=== PATIENT | male | born 1970 | race Caucasian/White ===

== ENCOUNTER 2020-05-10 15:04 | Emergency (ER) | payer BC, SELFPAY ==
[2020-05-10 15:28] VITALS: BP 124/83; PULSE 100; RESP 18; O2SAT 94; BMI 34.8
[2020-05-10 15:30] VITALS: RESP 18
--- NOTE | 2020-05-10 15:34 | XRR_ITS ---
PROCEDURE INFORMATION: Exam: XR Chest Exam date and time: 05/10/2020 4:00 PM Age: 49 years old Clinical indication: Cough and dyspnea; Additional info: Dyspnea/cough TECHNIQUE: Imaging protocol: XR of the chest Views: 1 view. COMPARISON: CR Chest 1 [place] [id number] 04/13/2018 2:26 PM FINDINGS: Lungs: Nonspecific ground-glass infiltrates noted in the right mid/upper lung and left lung base. Left upper lung is clear. Pleural spaces: Unremarkable. No pleural effusion. No pneumothorax. Heart/Mediastinum: No cardiomegaly. Bones/joints: Unremarkable. XR/XR chest 1V portable [id number] IMPRESSION: Nonspecific ground-glass infiltrates noted in the right mid/upper lung and left lung base. Consider nonspecific viral pneumonia. This is new when compared to 04/13/2018.
[2020-05-10 15:38] VITALS: RESP 18
--- NOTE | 2020-05-10 16:21 | W.ED.CHESTPA ---
HPI - Chest Pain General: Chief Complaint: Chest Pain Stated Complaint: Chest Pain, dizziness. Covid +, in COVID WR Time Seen by Provider: 05/10/20 15:19 History of Present Illness: HPI narrative: 49-year-old male presents emergency room with complaints of fever and shortness of breath. Tested positive for Covid 5 days ago. He had symptoms for 5 days prior to that as well so he is past the 10-day celia since the onset of symptoms at this point. Patient is morbidly obese and he does have history of diabetes mellitus. His mildly productive cough. He is not been particularly short of breath but he does have significant chest pain with his cough. In addition to being obese he is diabetic. Onset (ago): day(s) Timing of current episode: episodic Onset: during rest and during exertion Pain location: other (Diffusely across the chest) Pain radiation: none Severity: moderate Quality: sharp Relieving factors: nothing Exacerbating factors: inspiration and other (cough) Associated symptoms: Reports dyspnea, fever(s) and nausea; Deny abdominal pain, diaphoresis, leg edema, palpitations, sense of impending doom, syncope or vomiting Treatment prior to arrival: none Review of Systems Const: Reports: fever(s); Denies: diaphoresis Eyes: Denies: change in vision or blurry vision ENMT: Denies: throat pain, oral sores, dental pain, nasal discharge or nasal congestion Card: Denies: palpitations or syncope Resp: Reports: dyspnea GI: Reports: nausea; Denies: abdominal pain or vomiting : Denies: flank pain, difficulty urinating, dysuria, urinary frequency, urinary urgency, urinary incontinence or hematuria Musc: Denies: neck pain, back pain, extremity pain, extremity swelling, joint pain or joint swelling Skin/Breast: Denies: rash, pruritus or erythema Neuro: Denies: headache(s), numbness in extremities, weakness in extremities, sensory changes, lack of coordination, difficulty walking, frequent falls, dizziness, vertigo or confusion Psych: Denies: anxiety, depression, loss of interest, visual hallucinations, auditory hallucinations, suicidal ideation or homicidal ideation Endo: Denies: polyuria, polydipsia, tired all the time or cold intolerance Aung/Lymph: Denies: easy bruising, easy bleeding, petechiae, enlarged lymph nodes or tender lymph nodes Physical Exam Const: COMMON NORMALS: no acute distress GENERAL APPEARANCE: cooperative and comfortable ORIENTATION/CONSCIOUSNESS: Yes awake, Yes oriented to person, Yes oriented to place and Yes oriented to time HENMT: COMMON NORMALS: normocephalic, atraumatic and hearing grossly normal bilaterally HEAD & SCALP: normocephalic and atraumatic Eye: COMMON NORMALS: Equal, round and reactive pupils present, EOMs intact bilaterally, conjunctivae normal and no scleral icterus CONJUNCTIVA: Yes conjunctivae normal PUPIL: Yes Equal, round and reactive pupils present Neck/C-Spine: COMMON NORMALS: full ROM, no lymphadenopathy, supple and no JVD Lymph: LYMPHATIC: no lymphadenopathy noted and no lymphedema noted Resp: COMMON NORMALS: normal respiratory effort, No retractions, No use of accessory muscles and clear to auscultation bilaterally AUSCULTATION: clear to auscultation bilaterally Cardio: COMMON NORMALS: no JVD, regular rate, regular rhythm and No murmurs present (Cardio) RATE: regular rate RHYTHM: regular rhythm GI: COMMON NORMALS: Soft to palpation and No hepatosplenomegaly present AUSCULTATION: Yes normoactive bowel sounds PALPATION: Yes Soft to palpation, No Tenderness to palpation present (GI), No Guarding due to palpation present (GI) and Yes No hepatosplenomegaly present Extremity: COMMON NORMALS: normal to inspection, capillary refill normal, no clubbing, cyanosis or edema, no calf tenderness and no pedal edema Neuro: SENSORIUM/ORIENTATION: Yes oriented to person, Yes oriented to place and Yes oriented to time Skin: COMMON NORMALS: no rashes or lesions noted GENERAL SKIN EXAM: no rashes or lesions noted Course Vital Signs: Vital signs: Vital Signs Pulse Rate 100 05/10/20 15:28 Respiratory Rate 18 05/10/20 16:34 Blood Pressure 124/83 05/10/20 15:28 Pulse Oximetry 95 05/10/20 16:34 MDM - Chest Pain MDM Narrative: Medical decision making narrative: Typical symptoms for COVID-19 vitals are within normal ranges patient's chest pain is only associated with cough and deep inspiration. His oxygen sats are in the normal range we will discharge him home with hip finger sat monitor. He is well beyond the range of monoclonal antibody infusion. Discharge Plan Discharge Patient Disposition: Home Clinical Impression: COVID-19 Condition: Stable Prescriptions: No Action citalopram 40 mg tablet 40 mg PO DAILY RF: 0 prednisone 20 mg tablet 40 mg PO DAILY RF: 0 glimepiride 2 mg tablet 2 mg PO DAILY RF: 0 alprazolam 0.5 mg tablet 0.5 mg PO DAILY PRN (Reason: Anxiety) RF: 0 hydrocodone-acetaminophen 7.5-325 mg tablet 1 tab PO TID PRN (Reason: Pain) RF: 0 lisinopril-hydrochlorothiazide 20-25 mg tablet 1 tab PO DAILY RF: 0 zolpidem 10 mg tablet 10 mg PO BEDTIME PRN (Reason: Insomnia) RF: 0 Discharge Orders: Discharge ED (Routine); Ordered 05/10/20 Ordered By: Santos Adair Referrals: Nicolas Koroma MD [Primary Care Provider] - Discharge Diet: Usual diet Discharge Activity: Limit activity as instructed Patient Instructions: Opioid Safety Coding Level of Care Code ED [employer] Laborer for Gino Simmons
[2020-05-10 16:34] VITALS: RESP 18; O2SAT 95
--- NOTE | 2020-05-10 16:34 | PC.NURSE ---
Given patient home oxygen monitor for home use.
--- NOTE | 2020-05-10 18:15 | ECG_ITS ---
[facility] Test Date: 2020-05-10 Pat Name: Eben Perry Department: Room: Gender: Male Senior Laboratory Technician: : 1970 Requested By: Santos Bella Order Number: [id number] Will MD: Maureen Thurman M.D. Measurements Intervals [place] Rate: 99 P: 29 AK: 123 QRS: 18 QRSD: 96 T: 58 QT: 340 QTc: 436 Interpretive Statements SINUS RHYTHM NONSPECIFIC ST & T-WAVE ABNORMALITY Compared to ECG 04/13/2018 21:11:02 T-wave abnormality now present Sinus bradycardia no longer present Electronically Signed On 05-10-2020 19:44:50 IMPROVEMENT SPEC by Maureen Thurman M.D. [id number] f
== END 2020-05-10 16:35 | disposition home or self-care (01) ==
PROVIDERS: Emergency Provider Family Medicine; PCP Family Medicine
DX: U07.1 COVID-19 (principal)
CPT/HCPCS: 71045; 93005; 99283

== ENCOUNTER 2020-05-14 17:02 | Emergency (ER) | payer SELFPAY ==
[2020-05-14 17:25] VITALS: BP 105/70; PULSE 98; RESP 15; TEMP 36.8; O2SAT 92; BMI 35.9
--- NOTE | 2020-05-14 17:34 | PC.NURSE ---
this nurse applied 2L per NC of supplemental O2 for comfort
[2020-05-14 17:54] VITALS: BP 102/65; PULSE 89; RESP 18; O2SAT 94
[2020-05-14 17:59] VITALS: O2SAT 95
--- NOTE | 2020-05-14 17:59 | XR_ITS ---
WS: [id number] XR chest 1V portable [id number] REASON FOR EXAM: SOB FINDINGS: Compared to the previous examination of 05/10/2020 the multiple areas of interstitial and groundglass infiltrative changes have increased in volume. Remainder the examination is unchanged. XR/XR chest 1V portable [id number] IMPRESSION: Increasing pulmonary infiltrates as above.
[2020-05-14 18:16] LABS: Basophils % 0.4 %; Eosinophils # 0.3 10^3/uL (0.0-0.8); Eosinophils % 3.4 %; Hematocrit 41.1 % (42.0-52.0); Hemoglobin 13.8 g/dL (11.7-16.6); Lymphocytes # 1.2 10^3/uL (0.8-4.8); Lymphocytes % 15.4 %; Mean Corpuscular HGB Conc 33.6 g/dL (30.0-36.0); Mean Corpuscular Volume 89.3 fL (80-94); Mean Platelet Volume 9.9 fL (7.4-10.4); Monocytes % 12.8 %; Neutrophils # 4.99 10^3/uL (1.8-7.7); Neutrophils % 65.9 %; Nucleated Red Blood Cells % 0 %; Platelet Count 349 10^3/cmm (130-400); Red Cell Distribution Width 11.9 % (12.1-15.1); White Blood Count 7.6 10^3/uL (4.0-10.0)
[2020-05-14 18:50] LABS: D Dimer 0.74 ug/mIFEU (0-0.59)
[2020-05-14 18:55] LABS: Lactic Sepsis W/Reflex 1.6 mmol/L (0.5-2.2)
[2020-05-14 19:13] LABS: Alanine Aminotransferase 26 U/L (0-41); Albumin Level 3.5 g/dL (3.5-5.2); Alkaline Phosphatase 75 IU/L (40-130); Anion Gap 17.2 (5-19); Aspartate Amino Transferase 20 U/L (0-40); Blood Urea Nitrogen 20 mg/dL (6-20); C Reactive Protein 90.5 mg/L (0.0-4.9); Calcium 9.6 mg/dL (8.5-10.5); Carbon Dioxide 24 mmol/L (22-29); Chloride 99 mmol/L (98-107); Globulin 4.4 g/dL (1.3-4.6); Glucose 122 mg/dL (65-115); Osmolality Calculated 288 mOsm/kg (285-295); Potassium 3.2 mmol/L (3.5-5.1); Sodium 137 mmol/L (136-145); Total Bilirubin 0.4 mg/dL (0.15-1.2); Total Protein 7.9 g/dL (6.6-8.7)
[2020-05-14 19:16] VITALS: BP 99/56; PULSE 74; RESP 16; O2SAT 94
--- NOTE | 2020-05-14 20:04 | CTR_ITS ---
PROCEDURE INFORMATION: Exam: CT Angiography Chest With Contrast Exam date and time: 05/14/2020 8:13 PM Age: 49 years old Clinical indication: Shortness of breath; Additional info: SOB TECHNIQUE: Imaging protocol: Computed tomographic angiography of the chest with contrast. 3D rendering (Not supervised by radiologist): MIP and/or 3D reconstructed images were created by the technologist. Total images: 949 Radiation optimization: All CT scans at this facility use at least one of these dose optimization techniques: automated exposure control; mA and/or kV adjustment per patient size (includes targeted exams where dose is matched to clinical indication); or iterative reconstruction. Contrast material: OMNI 350; Contrast volume: 95 ml; Contrast route: INTRAVENOUS (IV); COMPARISON: CR XR chest 1V portable [id number] 05/14/2020 6:10 PM RADIATION DOSE METRICS: Total DLP (mGy-cm): 626.75 FINDINGS: Pulmonary arteries: No visible evidence of pulmonary embolism/pulmonary arterial thrombus. Aorta: The thoracic aorta is nonaneurysmal. No visible intimal flap or dissection. Lungs: Bilateral, predominantly peripheral, patchy ground-glass interstitial lung disease opacification consistent with active interstitial pneumonitis. Evidence of early consolidation. Overall constellation of findings would be consistent with Covid-19 pneumonitis/pneumonia. Pleural spaces: Unremarkable. No pneumothorax. No pleural effusion. Heart: No cardiomegaly. No visible pericardial effusion. No visible coronary artery disease. Lymph nodes: Few marginally prominent middle mediastinal and hilar lymph nodes most likely reactive. Liver: Diffuse fatty infiltration of the liver with hepatomegaly. Spleen: Splenomegaly. Bones/joints: No visible evidence of active or acute osseous pathology. Mild degenerative disease of the spine. Soft tissues: Unremarkable. Other findings: Heavy body habitus. CT/CT angio chest PE protcl [id number] IMPRESSION: 1. No visible evidence of pulmonary embolism/pulmonary arterial thrombus. 2. Bilateral, predominantly peripheral, patchy ground-glass interstitial lung disease opacification consistent with active interstitial pneumonitis. Evidence of early consolidation. Overall constellation of findings would be consistent with Covid-19 pneumonitis/pneumonia. 3. Hepatosplenomegaly. 4. Diffuse fatty infiltration of the liver. Radiation Dose CTDIVOL = (mGy): DLP = 626.75 (mGy-cm)
[2020-05-14] MEDS: iohexol 350 mg/mL 100 mL Btl IV (20:28)
--- NOTE | 2020-05-14 21:01 | ED_ITS ---
HPI - COVID General: Chief Complaint: COVID symptoms Stated Complaint: COVID +. ..STATES LOW ON OXYGEN Time Seen by Provider: 05/14/20 17:30 Source: patient Mode of arrival: ambulatory Limitations: no limitations Triage information: Has fever, cough or shortness of breath . No known COVID + exposure last 14 days History of Present Illness: HPI Narrative: Patient is a 49-year-old male who was diagnosed with COVID-19 about 10 days ago. Symptoms started about 45 days prior to that. He continues to be short of breath and when he checks his pulse oximeter his saturations drop and has dropped as low as 76. He is having increasing shortness of breath and so he is here to be evaluated. During triage nurse put him on oxygen at 2 L and he felt a whole lot better. MD complaint: known COVID positive Prior covid testing: yes, results known COVID 19 common symptoms: positive fever(s), cough, dyspnea and fatigue; negative chills, body aches, headache(s), loss of sense of smell and/or taste, throat pain, nasal congestion, nausea or vomiting COVID 19 other sytmptoms: positive requiring oxygen; negative chest pressure, chest pain, pleuritic pain, requiring more oxygen, respiratory distress, cyanosis, confusion, new neurological complaints or other concerning symptoms Onset (ago): week(s) (1) Severity: slowly worsening Pertinent comorbid conditions: diabetes and hypertension Treatment prior to arrival: none COVID Results: No Data to Display Review of Systems General: Reports: 10 or more systems reviewed and unremarkable except in HPI and below Const: Reports: fever(s) and fatigue; Denies: chills or body aches Eyes: Denies: change in vision or blurry vision ENMT: Denies: throat pain or nasal congestion Card: Denies: chest pain Resp: Reports: dyspnea GI: Denies: nausea or vomiting : Denies: flank pain, dysuria, urinary frequency, urinary urgency or urinary hesitancy Musc: Denies: neck pain, back pain or extremity swelling Skin/Breast: Denies: rash, pruritus or erythema Neuro: Denies: headache(s) or confusion Endo: Denies: polyuria, polydipsia or tired all the time Physical Exam Const: COMMON NORMALS: no acute distress, average body habitus, patient oriented x3, no limitations, healthy appearing, alert and well nourished HENMT: COMMON NORMALS: normocephalic, atraumatic and moist oral mucous membranes HEAD & SCALP: normocephalic and atraumatic Eye: COMMON NORMALS: Equal, round and reactive pupils present, EOMs intact bilaterally, conjunctivae normal and no scleral icterus CONJUNCTIVA: Yes conjunctivae normal PUPIL: Yes Equal, round and reactive pupils present Neck/C-Spine: COMMON NORMALS: no meningeal signs and no JVD Resp: COMMON NORMALS: normal respiratory effort, No retractions, No use of accessory muscles, clear to auscultation bilaterally and percussion normal AUSCULTATION: clear to auscultation bilaterally PERCUSSION: percussion normal Cardio: COMMON NORMALS: no JVD, regular rate, regular rhythm, S1 normal heart sound present, S2 normal heart sound present, No gallops present (Cardio), No clicks present (Cardio), No murmurs present (Cardio), No rub (Cardio) and Peripheral pulses 2+ throughout RATE: regular rate RHYTHM: regular rhythm HEART SOUNDS: S1 normal heart sound present and S2 normal heart sound present PERIPHERAL PULSES: Peripheral pulses 2+ throughout GI: COMMON NORMALS: Normal to inspection, nondistended, normoactive bowel sounds present, Soft to palpation, non-tender, No hepatosplenomegaly present, no masses and no bruits PALPATION: Yes Soft to palpation and Yes No hepatosplenomegaly present Extremity: COMMON NORMALS: normal to inspection, full ROM, capillary refill normal, no calf tenderness and no pedal edema Neuro: COMMON NORMALS: patient oriented x3 SENSORIUM/ORIENTATION: Yes alert MENINGEAL SIGNS: Yes no meningeal signs Skin: COMMON NORMALS: no rashes or lesions noted, no wounds, turgor normal, no jaundice, no petechiae and no mottling GENERAL SKIN EXAM: no rashes or lesions noted and turgor normal Course Reevaluation(s): Reevaluation #1: Discussed his lab and imaging findings with him. Chest x-ray and CT scan are consistent with Covid pneumonia. No PE. We will discharge him home on home oxygen. He is to f/u with his PCP. He voiced understanding and all questions answered. Time: 21:32 Vital Signs: Vital signs: Vital Signs Temperature 98.3 F 05/14/20 17:25 Pulse Rate 68 03/17/21 21:44 Respiratory Rate 18 05/14/20 21:44 Blood Pressure 98/58 05/14/20 21:44 Pulse Oximetry 93 05/14/20 21:44 MDM - COVID MDM Narrative: Medical decision making narrative: 49-year-old male with Covid pneumonia who has been having hypoxia at home. Because he was having worsening shortness of breath a CTA was done which was negative for PE. Chest x-ray and CTA of his lungs are consistent with Covid pneumonia. Other labs were unr emarkable. He is discharged home on home oxygen. Medical Records: Attestation: I reviewed the patient's medical records. Lab Data: Attestation: I reviewed the patient's lab results. Labs: Lab Results 05/14/20 05/14/20 05/14/20 Range/Units 17:50 17:50 17:50 WBC 7.6 (4.0-10.0) 10^3/ uL RBC 4.60 (4.1-5.3) 10^6/u L Hgb 13.8 (11.7-16.6) g/dL Hct 41.1 L (42.0-52.0) % MCV 89.3 (80-94) fL MCH 30.0 (28.0-34.0) pg MCHC 33.6 (30.0-36.0) g/dL RDW 11.9 L (12.1-15.1) % Plt Count 349 (130-400) 10^3/c mm MPV 9.9 (7.4-10.4) fL Neut % (Auto) 65.9 % Lymph % (Auto) 15.4 % Davis % (Auto) 12.8 % Eos % (Auto) 3.4 % Baso % (Auto) 0.4 % Neut # (Auto) 4.99 (1.8-7.7) 10^3/u L Lymph # (Auto) 1.2 (0.8-4.8) 10^3/u L Davis # (Auto) 1.0 H (0.2-0.9) 10^3/u L Eos # (Auto) 0.3 (0.0-0.8) 10^3/u L Baso # (Auto) 0.0 (0.0-0.1) 10^3/u L Nucleated RBC % (a uto) 0 % Nucleated RBCs # 0.0 /100WBC D-Dimer 0.74 H (0-0.59) ug/mIFE U Sodium 137 (136-145) mmol/L Potassium 3.2 L (3.5-5.1) mmol/L Chloride 99 (98-107) mmol/L Carbon Dioxide 24 (22-29) mmol/L Anion Gap 17.2 (5-19) BUN 20 (6-20) mg/dL Creatinine 0.9 (0.7-1.2) mg/dL GFR Calculation 89.0 L (90-130) mL/min Glucose 122 H (65-115) mg/dL Calculated Osmolal ity 288 (285-295) mOsm/k g Lactic Acid (0.5-2.2) mmol/L Calcium 9.6 (8.5-10.5) mg/dL Total Bilirubin 0.4 (0.15-1.2) mg/dL AST 20 (0-40) U/L ALT 26 (0-41) U/L Alkaline Phosphata se 75 (40-130) IU/L C-Reactive Protein 90.5 H (0.0-4.9) mg/L Total Protein 7.9 (6.6-8.7) g/dL Albumin 3.5 (3.5-5.2) g/dL Globulin 4.4 (1.3-4.6) g/dL Procalcitonin 0.30 (0-0.5) ng/mL 05/14/20 Range/Units 17:50 WBC (4.0-10.0) 10^3/ uL RBC (4.1-5.3) 10^6/u L Hgb (11.7-16.6) g/dL Hct (42.0-52.0) % MCV (80-94) fL MCH (28.0-34.0) pg MCHC (30.0-36.0) g/dL RDW (12.1-15.1) % Plt Count (130-400) 10^3/c mm MPV (7.4-10.4) fL Neut % (Auto) % Lymph % (Auto) % Davis % (Auto) % Eos % (Auto) % Baso % (Auto) % Neut # (Auto) (1.8-7.7) 10^3/u L Lymph # (Auto) (0.8-4.8) 10^3/u L Davis # (Auto) (0.2-0.9) 10^3/u L Eos # (Auto) (0.0-0.8) 10^3/u L Baso # (Auto) (0.0-0.1) 10^3/u L Nucleated RBC % (a uto) % Nucleated RBCs # /100WBC D-Dimer (0-0.59) ug/mIFE U Sodium (136-145) mmol/L Potassium (3.5-5.1) mmol/L Chloride (98-107) mmol/L Carbon Dioxide (22-29) mmol/L Anion Gap (5-19) BUN (6-20) mg/dL Creatinine (0.7-1.2) mg/dL GFR Calculation (90-130) mL/min Glucose (65-115) mg/dL Calculated Osmolal ity (285-295) mOsm/k g Lactic Acid 1.6 (0.5-2.2) mmol/L Calcium (8.5-10.5) mg/dL Total Bilirubin (0.15-1.2) mg/dL AST (0-40) U/L ALT (0-41) U/L Alkaline Phosphata se (40-130) IU/L C-Reactive Protein (0.0-4.9) mg/L Total Protein (6.6-8.7) g/dL Albumin (3.5-5.2) g/dL Globulin (1.3-4.6) g/dL Procalcitonin (0-0.5) ng/mL Imaging Data: CTA Chest: Attestation: I personally reviewed and interpreted this imaging study as follows: Radiologist's impression: [address] [address] [address] Scan Report Signed Patient: Eben Perry #: [id number] : 1970Acct#:[id number] Age/Sex: 49 / MADM Date: 05/14/20 Loc: ERRoom/Bed: Attending Dr: Ordering Provider/Ordering MD: Omayra Torres MD, [facility] [place] Date of Service: 05/14/20 Procedure(s): CT angio chest PE protcl [id number] Accession Number(s): [id number] Report Number: [id number] PROCEDURE INFORMATION: Exam: CT Angiography Chest With Contrast Exam date and time: 05/14/2020 8:13 PM Age: 49 years old Clinical indication: Shortness of breath; Additional info: SOB TECHNIQUE: Imaging protocol: Computed tomographic angiography of the chest with contrast. 3D rendering (Not supervised by radiologist): MIP and/or 3D reconstructed images were created by the technologist. Total images: 949 Radiation optimization: All CT scans at this facility use at least one of these dose optimization techniques: automated exposure control; mA and/or kV adjustment per patient size (includes targeted exams where dose is matched to clinical indication); or iterative reconstruction. Contrast material: OMNI 350; Contrast volume: 95 ml; Contrast route: INTRAVENOUS (IV); COMPARISON: CR XR chest 1V portable [id number] 05/14/2020 6:10 PM RADIATION DOSE METRICS: Total DLP (mGy-cm): 626.75 FINDINGS: Pulmonary arteries: No visible evidence of pulmonary embolism/pulmonary arterial thrombus. Aorta: The thoracic aorta is nonaneurysmal. No visible intimal flap or dissection. Lungs: Bilateral, predominantly peripheral, patchy ground-glass interstitial lung disease opacification consistent with active interstitial pneumonitis. Evidence of early consolidation. Overall constellation of findings would be consistent with Covid-19 pneumonitis/pneumonia. Pleural spaces: Unremarkable. No pneumothorax. No pleural effusion. Heart: No cardiomegaly. No visible pericardial effusion. No visible coronary artery disease. Lymph nodes: Few marginally prominent middle mediastinal and hilar lymph nodes most likely reactive. Liver: Diffuse fatty infiltration of the liver with hepatomegaly. Spleen: Splenomegaly. Bones/joints: No visible evidence of active or acute osseous pathology. Mild degenerative disease of the spine. Soft tissues: Unremarkable. Other findings: Heavy body habitus. CT/CT angio chest PE protcl [id number] IMPRESSION: 1. No visible evidence of pulmonary embolism/pulmonary arterial thrombus. 2. Bilateral, predominantly peripheral, patchy ground-glass interstitial lung disease opacification consistent with active interstitial pneumonitis. Evidence of early consolidation. Overall constellation of findings would be consistent with Covid-19 pneumonitis/pneumonia. 3. Hepatosplenomegaly. 4. Diffuse fatty infiltration of the liver. Radiation Dose CTDIVOL = (mGy): DLP = 626.75 (mGy-cm) Dictated By:Dileep Weller Signed By:Dileep WellerSigncarmen Date/Time:05/14/202104 DD/ 04 CXR: Attestation: I personally reviewed and interpreted this imaging study as follows: My impression: Bilateral patchy infiltrates consistent with Covid pneumonia COVID Results: No Data to Display Monoclonal Antibody Treatments Inclusion/Exclusion Criteria weight >/= 40 kg and negative or no COIVD test (DO NOT GIVE) has diabetes not requiring hospitalization and needs oxygen (DO NOT GIVE) Plan for treatment Does not meet criteria (DO NOT GIVE) Discharge Plan Discharge Patient Disposition: Home Clinical Impression: Pneumonia due to 2019 novel coronavirus, Hypoxia Condition: Stable Prescriptions: Continued citalopram 40 mg tablet 40 mg PO DAILY@0800 RF: 0 prednisone 20 mg tablet 40 mg PO DAILY@0800 RF: 0 glimepiride 2 mg tablet 2 mg PO DAILY@0800 RF: 0 alprazolam 0.5 mg tablet 0.5 mg PO DAILY@0800 PRN (Reason: Anxiety) RF: 0 hydrocodone-acetaminophen 7.5-325 mg tablet 1 tab PO TID PRN (Reason: Pain) RF: 0 lisinopril-hydrochlorothiazide 20-25 mg tablet 1 tab PO DAILY@0800 RF: 0 zolpidem 10 mg tablet 10 mg PO BEDTIME@2200 PRN (Reason: Insomnia) RF: 0 Tylenol 325 mg Tablet 325 - 650 mg PO QID PRN (Reason: Pain/headache) RF: 0 ibuprofen 200 mg Tablet 200 - 400 mg PO Q6H PRN (Reason: pain/headache) RF: 0 Discharge Orders: Discharge ED (Routine); Ordered 05/14/20 Ordered By: Omayra Torres Other Ambulatory Orders: DME: Oxygen (Order) Location: None Selected Ordered By: Omayra Torres Referrals: Nicolas Koroma MD [Primary Care Provider] - 1-3 days Discharge Diet: Usual diet Discharge Activity: Increase activity as tolerated Patient Instructions: Viral Pneumonia (ED) Activity Restrictions/Additional Instructions: Return for any new or worsening symptoms. Follow-up with your primary care provider within 3 days. Use the oxygen as needed, when you feel you no longer need the oxygen you can discontinue. Continue to check your oxygen levels, if he continues to get low please return to be evaluated. Coding Level of Care Code ED Patent Paralegal for Gino Fwd Exam Comprehensive
[2020-05-14 21:44] VITALS: BP 98/58; PULSE 68; RESP 18; O2SAT 93
== END 2020-05-14 21:44 | disposition home or self-care (01) ==
PROVIDERS: Emergency Provider Family Medicine; PCP Family Medicine
DX: U07.1 COVID-19 (principal); J12.82 Pneumonia due to coronavirus disease 2019; R09.02 Hypoxemia
CPT/HCPCS: 71045; 71275; 80053; 83605; 84145; 85025; 85378; 86140; 99283; Q9967

== ENCOUNTER 2022-08-27 19:07 | Emergency (ER) | payer OTHER, SELFPAY ==
[2022-08-27 19:19] VITALS: BP 116/69; PULSE 78; RESP 18; TEMP 36.7; O2SAT 97; BMI 37.3
[2022-08-27 20:09] LABS: Basophils # 0.1 10^3/uL (0.0-0.1); Basophils % 0.7 %; Eosinophils # 0.2 10^3/uL (0.0-0.8); Eosinophils % 2.2 %; Hemoglobin 13.6 g/dL (11.7-16.6); Lymphocytes # 3.2 10^3/uL (0.8-4.8); Lymphocytes % 33.4 %; Mean Corpuscular HGB Conc 32.4 g/dL (30.0-36.0); Mean Corpuscular Hemoglobin 29.6 pg (28.0-34.0); Mean Corpuscular Volume 91.5 fl (80-94); Mean Platelet Volume 9.7 fL (7.4-10.4); Monocytes # 0.9 10^3/uL (0.2-0.9); Monocytes % 9.2 %; Neutrophils # 5.14 10^3/uL (1.8-7.7); Neutrophils % 54.1 %; Nucleated Red Blood Cells % 0 %; Platelet Count 251 10^3/cmm (130-400); Red Blood Count 4.59 10^6/uL (4.1-5.3); Red Cell Distribution Width 12.6 % (12.1-15.1); White Blood Count 9.5 10^3/uL (4.0-10.0)
[2022-08-27 20:36] LABS: Alanine Aminotransferase 30 U/L (0-41); Albumin Level 4.2 g/dL (3.5-5.2); Alkaline Phosphatase 98 U/L (40-130); Aspartate Amino Transferase 17 U/L (0-40); Blood Urea Nitrogen 14 mg/dL (6-20); C Reactive Protein 7.6 mg/L (0.0-4.9); Calcium 9.1 mg/dL (8.5-10.5); Carbon Dioxide 23 mmol/L (22-29); Chloride 104 mmol/L (98-107); Glomerular Filtration Rate 78.2 mL/min (90-130); Glucose 126 mg/dL (65-115); Lipase 60 U/L (13-60); Osmolality Calculated 292 mOsm/kg (285-295); Sodium 140 mmol/L (136-145); Total Bilirubin 0.2 mg/dL (0.15-1.2); Total Protein 7.2 g/dL (6.6-8.7)
== END 2022-08-27 22:32 | disposition left against medical advice (07) ==
LOC: ER 19:15
PROVIDERS: Emergency Medicine; Emergency Provider Family Medicine; PCP Family Medicine
DX: Z53.21 Procedure and treatment not carried out due to patient leaving prior to being seen by health care provider (principal)
CPT/HCPCS: 36415; 80053; 83690; 85025; 86140; 99283

== ENCOUNTER → 2024-02-14 12:09 | Outpatient (BNVA) | payer MEDICAID, SELFPAY | PROVIDERS: PCP Family Medicine; Referring Provider Psychiatry & Neurology Neurology; Visit Provider Psychiatry & Neurology Neurology | DX: E11.42 Type 2 diabetes mellitus with diabetic polyneuropathy; G56.03 Carpal tunnel syndrome, bilateral upper limbs | CPT/HCPCS: 95912 ==

== ENCOUNTER 2024-03-01 09:54 | Outpatient (CLI) | payer OTHER, SELFPAY ==
--- NOTE | 2024-03-01 10:12 | XR_ITS ---
WS: [id number] LUMBAR SPINE TECHNIQUE: 3 views of the lumbar spine CLINICAL INFORMATION: DISABILITY DETERMINATION FINDINGS: Five [id number] lumbar vertebral bodies. Mild lumbar curve convex LEFT. No acute appearing comp ression fractures. Disc space narrowing worse at L1-L2 and L2-L3. Slight retrolisthesis L1 on L2 and L2 on L3. Anterior hypertrophic changes L1-2. Moderate facet arthropathy L5-S1. Normal visualized soft tissues. Partially visualized bowel gas pattern is normal. XR/XR lumbar spine 2-3V* [id number] IMPRESSION: 1. Mild lumbar curve convex LEFT. 2. Disc space narrowing worse at L1-L2 and L2-L3 with slight retrolisthesis L1 on L2 and L2 on L3. 3. Anterior hypertrophic changes at L1-2. 4. Moderate facet arthropathy lower lumbar spine.
== END 2024-03-01 09:55 | disposition home or self-care (01) ==
LOC: RAD 10:05
PROVIDERS: PCP Family Medicine; Visit Provider Pediatrics Neonatal-Perinatal Medicine
DX: Z02.71 Encounter for disability determination (principal); M43.8X6 Other specified deforming dorsopathies, lumbar region; M48.061 Spinal stenosis, lumbar region without neurogenic claudication; M43.16 Spondylolisthesis, lumbar region; R93.89 Abnormal findings on diagnostic imaging of other specified body structures; M47.816 Spondylosis without myelopathy or radiculopathy, lumbar region; M47.897 Other spondylosis, lumbosacral region
CPT/HCPCS: 72100

== ENCOUNTER → 2024-04-09 13:00 | Outpatient (BNVA) | payer MEDICAID, SELFPAY | PROVIDERS: PCP Family Medicine; Visit Provider Specialist | DX: Z01.818 Encounter for other preprocedural examination (principal); G56.03 Carpal tunnel syndrome, bilateral upper limbs | CPT/HCPCS: 36415; 73130; 80053; 81001; 83036; 85025 ==

== ENCOUNTER 2024-06-07 18:02 | Emergency (ER) | payer MEDICAID, SELFPAY ==
[2024-06-07 18:05] VITALS: PULSE 83; RESP 16; TEMP 36.6; O2SAT 97; BMI 38.4
[2024-06-07 18:14] VITALS: BP 144/79
--- NOTE | 2024-06-07 18:17 | CTR_ITS ---
PROCEDURE INFORMATION: Exam: CTA Head With Contrast, Arteriography Exam date and time: 06/07/2024 6:31 PM Age: 53 years old Clinical indication: Pain and injury or trauma; Other: Popped neck; Sprain or strain; Headache; Additional info: Popped neck last night, now gets dizzy when he moves it TECHNIQUE: Imaging protocol: Computed tomographic angiography of the head with contrast. Exam focused on the arteries. 3D rendering (Not supervised by radiologist): MIP and/or 3D reconstructed images were created by the technologist. Radiation optimization: All CT scans at this facility use at least one of these dose optimization techniques: automated exposure control; mA and/or kV adjustment per patient size (includes targeted exams where dose is matched to clinical indication); or iterative reconstruction. Contrast material: OMNIPAQUE 350; Contrast volume: 100 ml; Contrast route: INTRAVENOUS (IV); COMPARISON: CT head wo con* [id number] 04/13/2018 9:22 PM RADIATION DOSE METRICS: Total DLP (mGy-cm): 1089.3 FINDINGS: ANTERIOR CIRCULATION: Right internal carotid artery: Intracranial segment is patent with no significant stenosis. No aneurysm. Right middle cerebral artery: No occlusion or significant stenosis. No aneurysm. Right anterior cerebral artery: No occlusion or significant stenosis. No aneurysm. Left internal carotid artery: Intracranial segment is patent with no significant stenosis. No aneurysm. Left middle cerebral artery: No occlusion or significant stenosis. No aneurysm. Left anterior cerebral artery: No occlusion or significant stenosis. No aneurysm. POSTERIOR CIRCULATION: Right vertebral artery: No occlusion or significant stenosis. No aneurysm. Left vertebral artery: No occlusion or significant stenosis. No aneurysm. Basilar artery: No occlusion or significant stenosis. No aneurysm. Right posterior cerebral artery: No occlusion or significant stenosis. No aneurysm. Left posterior cerebral artery: No occlusion or significant stenosis. No aneurysm. Brain: No hemorrhage. No edema. Mild diffuse cerebral atrophy. No significant white matter disease. No mass effect. Cerebral ventricles: No ventriculomegaly. Bones/joints: Unremarkable. No acute fracture. Soft tissues: Unremarkable. PROCEDURE INFORMATION: Exam: CTA Neck With Contrast Exam date and time: 06/07/2024 6:31 PM Age: 53 years old Clinical indication: Pain and injury or trauma; Other: Popped neck; Sprain or strain; Headache; Additional info: Popped neck last night, now gets dizzy when he moves it TECHNIQUE: Imaging protocol: Computed tomographic angiography of the neck with contrast. Exam focused on the cervical segments of the vasculature. 3D rendering (Not supervised by radiologist): MIP and/or 3D reconstructed images were created by the technologist. Radiation optimization: All CT scans at this facility use at least one of these dose optimization techniques: automated exposure control; mA and/or kV adjustment per patient size (includes targeted exams where dose is matched to clinical indication); or iterative reconstruction. Contrast material: OMNIPAQUE 350; Contrast volume: 100 ml; Contrast route: INTRAVENOUS (IV); COMPARISON: CT angio chest PE protcl [id number] 05/14/2020 8:38 PM RADIATION DOSE METRICS: Total DLP (mGy-cm): 1089.3 FINDINGS: Right common carotid artery: No stenosis. No dissection or occlusion. Right internal carotid artery: No stenosis of the extracranial segment. No dissection or occlusion. Right external carotid artery: No occlusion or stenosis of the origin. Left common carotid artery: No stenosis. No dissection or occlusion. Left internal carotid artery: No stenosis of the extracranial segment. No dissection or occlusion. Left external carotid artery: No occlusion or stenosis of the origin. Right vertebral artery: No stenosis. No dissection or occlusion. Left vertebral artery: No stenosis. No dissection or occlusion. Soft tissues: Normal. No significant soft tissue swelling. Bones/joints: No acute fracture. CT/CT angio headneck* [id number] IMPRESSION: No large vessel stenosis or occlusion. IMPRESSION: No stenosis or occlusion. REFERENCES: NASCET CRITERIA. The degree of stenosis in the cervical segment of the internal carotid artery is based on NASCET criteria. Normal is no stenosis. Mild is less than 50% stenosis. Moderate is 50-69% stenosis. Severe is 70% to 99% stenosis. Total occlusion is no detectable patent lumen.
[2024-06-07 18:27] LABS: Basophils # 0.1 10^3/uL (0.0-0.1); Basophils % 0.6 %; Eosinophils # 0.1 10^3/uL (0.0-0.8); Hematocrit 43.4 % (37-53); Lymphocytes # 1.7 10^3/uL (0.8-4.8); Lymphocytes % 20.8 %; Mean Corpuscular HGB Conc 33.2 g/dL (30-55); Mean Corpuscular Hemoglobin 30.6 pg (27-33); Mean Corpuscular Volume 92.3 fl (82-101); Mean Platelet Volume 9.5 fL (7.4-10.4); Monocytes # 0.7 10^3/uL (0.2-0.9); Monocytes % 8.2 %; Neutrophils # 5.53 10^3/uL (1.8-7.7); Neutrophils % 68.7 %; Nucleated Red Blood Cells % 0 %; Platelet Count 297 10^3/cmm (157-399); Red Cell Distribution Width 12.6 % (12.1-15.1); White Blood Count 8.06 10^3/uL (3.29-11.43)
[2024-06-07 18:39] LABS: INR 0.96 (0.8-1.2); Partial Thromboplastin Time 27.6 SECONDS (23.9-36.7)
[2024-06-07 18:44] LABS: Alanine Aminotransferase 40 U/L (0-41); Albumin Level 4.3 g/dL (3.5-5.2); Alkaline Phosphatase 95 U/L (40-130); Anion Gap 15.9 (5-19); Aspartate Amino Transferase 26 U/L (0-40); Blood Urea Nitrogen 10 mg/dL (6-20); Calcium 9.4 mg/dL (8.5-10.5); Carbon Dioxide 25 mmol/L (22-29); Chloride 101 mmol/L (98-107); Creatinine Clr Calc Pharmacy 121.2368; Globulin 3.3 g/dL (1.3-4.6); Glomerular Filtration Rate 87.6 mL/min (90-130); Glucose 185 mg/dL (65-115); Osmolality Calculated 290 mOsm/kg (285-295); Potassium 3.9 mmol/L (3.5-5.1); Sodium 138 mmol/L (136-145); Total Bilirubin 0.4 mg/dL (0.15-1.2); Total Protein 7.6 g/dL (6.6-8.7)
[2024-06-07] MEDS: meclizine 25 mg tablet 50 MG PO (19:22)
[2024-06-07 19:23] VITALS: BP 108/56; PULSE 76; RESP 18; O2SAT 96
--- NOTE | 2024-06-07 19:59 | W.ED.DIZZY ---
HPI - Dizziness General: Chief Complaint: Dizziness Stated Complaint: dizzy Time Seen by Provider: 06/07/24 18:05 Source: patient and family Mode of arrival: wheelchair Limitations: no limitations History of Present Illness: HPI Narrative: Patient wore CPAP to his neck last night while trying to the right and since then he started having intermittent dizziness. He has had 5 or 6 episodes last night some today and then 2 episodes while here. Does not improve with closing his eyes. Just feels like he is falling or uncoordinated and goes to the ground. Related Data Home Medications ?Medication ?Instructions ?Recorded ?Confirmed alprazolam 0.5 mg tablet 0.5 mg PO DAILY@0800 PRN Anxiety 05/10/20 04/09/24 citalopram 40 mg tablet 40 mg PO DAILY@0800 05/10/20 04/09/24 glimepiride 2 mg tablet 2 mg PO DAILY@0800 05/10/20 04/09/24 hydrocodone 7.5 mg-acetaminophen 1 tab PO TID PRN Pain 05/10/20 04/09/24 325 mg tablet prednisone 20 mg tablet 40 mg PO DAILY@0800 05/10/20 04/09/24 zolpidem 10 mg tablet 10 mg PO BEDTIME@2200 PRN Insomnia 05/10/20 04/09/24 acetaminophen 325 mg tablet 325 - 650 mg PO QID PRN 05/14/20 04/09/24 (Tylenol) Pain/headache ibuprofen 200 mg tablet 200 - 400 mg PO Q6H PRN 05/14/20 04/09/24 pain/headache lisinopril 10 1 tab PO DAILY 09/25/20 04/09/24 mg-hydrochlorothiazide 12.5 mg tablet atorvastatin 20 mg tablet (Lipitor) 20 mg PO DAILY 04/09/24 04/09/24 Previous Rx's ?Medication ?Instructions ?Recorded silver sulfadiazine 1 % topical 1 applic topical BID #50 grams 09/04/20 cream (Silvadene) acetaminophen 300 mg-codeine 30 mg 1 tab PO Q4H PRN pain 7 days #21 09/05/20 tablet tabs cephalexin 500 mg capsule 500 mg PO TID 7 days #21 caps 09/30/20 polymyxin B sulfate 10,000 1 drp ophthalmic (eye) Q3H 7 days 10/13/22 unit-trimethoprim 1 mg/mL eye drops #10 mL meclizine 25 mg tablet 25 mg PO TID PRN dizziness #30 tabs 06/07/24 Allergies Allergy/AdvReac Type Severity Reaction Status Date / Time No Known Allergies Allergy Verified 04/09/24 13:08 Review of Systems General: Reports: 10 or more systems reviewed and unremarkable except in HPI and below PFSH ED PFSH: Social History Smoking and tobacco/nicotine status: never used tobacco/nicotine Physical Exam Const: COMMON NORMALS: no acute distress, average body habitus, patient oriented x3, healthy appearing, alert and well nourished GENERAL APPEARANCE: well kempt and well developed HENMT: COMMON NORMALS: normocephalic, atraumatic, external ears normal and moist oral mucous membranes HEAD & SCALP: normocephalic and atraumatic EXTERNAL EAR: Yes external ears normal Eye: COMMON NORMALS: Equal, round and reactive pupils present, EOMs intact bilaterally and conjunctivae normal CONJUNCTIVA: Yes conjunctivae normal PUPIL: Yes Equal, round and reactive pupils present Neck/C-Spine: COMMON NORMALS: full ROM, no lymphadenopathy and supple Chest: CHEST: Yes Symmetrical chest wall rise and No Surgical scars present (Chest) Resp: COMMON NORMALS: normal respiratory effort, No retractions, No use of accessory muscles and clear to auscultation bilaterally AUSCULTATION: clear to auscultation bilaterally Cardio: COMMON NORMALS: regular rate, regular rhythm, S1 normal heart sound present, S2 normal heart sound present, No gallops present (Cardio), No clicks present (Cardio), No murmurs present (Cardio) and No rub (Cardio) RATE: regular rate RHYTHM: regular rhythm HEART SOUNDS: S1 normal heart sound present, S2 normal heart sound present and no murmurs PERIPHERAL PULSES: other (Radial pulses 2+ and symmetric) GI: COMMON NORMALS: Soft to palpation, non-tender and no masses INSPECTION: No abdominal distension PALPATION: Yes Soft to palpation, No Guarding due to palpation present (GI) and No Rebound tenderness present : COMMON NORMALS: Yes no CVA tenderness BLADDER/KIDNEY EXAM: Yes no CVA tenderness Back/Pelvis: COMMON NORMALS: no CVA tenderness Extremity: COMMON NORMALS: normal to inspection, full ROM, capillary refill normal and no clubbing, cyanosis or edema Neuro: COMMON NORMALS: patient oriented x3 SENSORIUM/ORIENTATION: Yes alert Psych: APPEARANCE: Yes well kempt Skin: COMMON NORMALS: no rashes or lesions noted, no wounds, turgor normal and no jaundice GENERAL SKIN EXAM: no rashes or lesions noted and turgor normal Course Vital Signs: Vital signs: Vital Signs Temperature 97.8 F 06/07/24 18:05 Pulse Rate 62 06/07/24 21:11 Respiratory Rate 16 06/07/24 20:00 Blood Pressure 119/75 06/07/24 21:11 Pulse Oximetry 98 06/07/24 21:11 Oxygen Delivery Me thod Room Air 06/07/24 19:23 MDM - Dizziness Medical Decision Making Patient with CTA showing no vessel occlusion, no neck mass. No bony deformity. No signs of ischemia to the brain. Vertigo is likely related to vestibular issue. Given meclizine. Will prescribe some as well. Can follow-up with PCP and get prescription for physical therapy if continues Differential Diagnosis Likely adverse reaction to drug, benign paroxysmal positional vertigo, orthostatic hypotension, vertebral basilar insufficiency, cerebrovascular accident, acute vestibular neuronitis and transient cerebral ischemia Medical Records I reviewed the patient's medical records. Lab Data I reviewed the patient's lab results. 06/07/24 18:21 06/07/24 18:21 Radiology Impressions Head/Neck CTA 06/07/24 18:17 IMPRESSION: No large vessel stenosis or occlusion. IMPRESSION: No stenosis or occlusion. REFERENCES: NASCET CRITERIA. The degree of stenosis in the cervical segment of the internal carotid artery is based on NASCET criteria. Normal is no stenosis. Mild is less than 50% stenosis. Moderate is 50-69% stenosis. Severe is 70% to 99% stenosis. Total occlusion is no detectable patent lumen. Laboratory Results WBC 8.06 10^3/uL (3.29-11.43) 06/07/24 18:21 RBC 4.70 10^6/uL (3.85-5.65) 06/07/24 18:21 Hgb 14.40 g/dL (11.27-16.99) 06/07/24 18: Hct 43.4 % (37-53) 06/07/24 18:21 MCV 92.3 fl (82-101) 06/07/24 18:21 MCH 30.6 pg (27-33) 06/07/24 18: MCHC 33.2 g/dL (30-55) 06/07/24 18:21 RDW 12.6 % (12.1-15.1) 06/07/24 18:21 Plt Count 297 10^3/cmm (157-399) 06/07/24 18:21 MPV 9.5 fL (7.4-10.4) 06/07/24 18:21 Neut % (Auto) 68.7 % 06/07/24 18:21 Lymph % (Auto) 20.8 % 06/07/24 18:21 [place] % (Auto) 8.2 % 06/07/24 18:21 Eos % (Auto) 1.0 % 06/07/24 18:21 Baso % (Auto) 0.6 % 06/07/24 18: Neut # (Auto) 5.53 10^3/uL (1.8-7.7) 06/07/24 18:21 Lymph # (Auto) 1.7 10^3/uL (0.8-4.8) 06/07/24 18:21 [place] # (Auto) 0.7 10^3/uL (0.2-0.9) 06/07/24 18:21 Eos # (Auto) 0.1 10^3/uL (0.0-0.8) 06/07/24 18: Baso # (Auto) 0.1 10^3/uL (0.0-0.1) 06/07/24 18: Nucleated RBC % (auto) 0 % 06/07/24 18: Nucleated RBCs # 0.0 /100WBC 06/07/24 18: PT 13.50 SECONDS (12.1-14.9) 06/07/24 18:21 INR 0.96 (0.8-1.2) 06/07/24 18:21 APTT 27.6 SECONDS (23.9-36.7) 06/07/24 18:21 Sodium 138 mmol/L (136-145) 06/07/24 18:21 Potassium 3.9 mmol/L (3.5-5.1) 06/07/24 18:21 Chloride 101 mmol/L (98-107) 06/07/24 18:21 Carbon Dioxide 25 mmol/L (22-29) 06/07/24 18:21 Anion Gap 15.9 (5-19) 06/07/24 18:21 BUN 10 mg/dL (6-20) 06/07/24 18:21 Creatinine 0.9 mg/dL (0.7-1.2) 06/07/24 18:21 GFR Calculation 87.6 mL/min (90-130) L 06/07/24 18:21 Glucose 185 mg/dL (65-115) H 06/07/24 18:21 Calculated Osmolality 290 mOsm/kg (285-295) 06/07/24 18:21 Calcium 9.4 mg/dL (8.5-10.5) 06/07/24 18:21 Total Bilirubin 0.4 mg/dL (0.15-1.2) 06/07/24 18:21 AST 26 U/L (0-40) 06/07/24 18:21 ALT 40 U/L (0-41) 06/07/24 18:21 Alkaline Phosphatase 95 U/L (40-130) 06/07/24 18:21 Total Protein 7.6 g/dL (6.6-8.7) 06/07/24 18:21 Albumin 4.3 g/dL (3.5-5.2) 06/07/24 18:21 Globulin 3.3 g/dL (1.3-4.6) 06/07/24 18:21 All radiology interpretation(s) finalized by discharge ED provider radiology interpretation(s): CTA head and neck personally reviewed no send no acute abnormality, awaiting radiology read. Discharge Plan Discharge Patient Disposition: Home Clinical Impression: Vertigo Condition: Stable Prescriptions: New meclizine 25 mg tablet 25 mg PO TID PRN (Reason: dizziness) Qty: 30 0RF No Action silver sulfadiazine [Silvadene] 1 % cream 1 applic topical BID Qty: 50 0RF Rx Instructions: apply a 1.5 mm thickness acetaminophen-codeine 300-30 mg tablet 1 tab PO Q4H PRN (Reason: pain) 7 Days Qty: 21 0RF lisinopril-hydrochlorothiazide 10-12.5 mg tablet 1 tab PO DAILY polymyxin B sulf-trimethoprim 10,000 unit- 1 mg/mL drops 1 drp ophthalmic (eye) Q3H 7 Days Qty: 10 0RF Rx Instructions: while awake; do not exceed 6 doses in 24 hours atorvastatin [Lipitor] 20 mg tablet 20 mg PO DAILY cephalexin 500 mg capsule 500 mg PO TID 7 Days Qty: 21 0RF citalopram 40 mg tablet 40 mg PO DAILY@0800 prednisone 20 mg tablet 40 mg PO DAILY@0800 glimepiride 2 mg tablet 2 mg PO DAILY@0800 alprazolam 0.5 mg tablet 0.5 mg PO DAILY@0800 PRN (Reason: Anxiety) hydrocodone-acetaminophen 7.5-325 mg tablet 1 tab PO TID PRN (Reason: Pain) zolpidem 10 mg tablet 10 mg PO BEDTIME@2200 PRN (Reason: Insomnia) Tylenol 325 mg Tablet 325 - 650 mg PO QID PRN (Reason: Pain/headache) ibuprofen 200 mg Tablet 200 - 400 mg PO Q6H PRN (Reason: pain/headache) Discharge Orders: Discharge ED (Routine); Ordered 06/07/24 Ordered By: Shawn Patrick Referrals: Nicolas Koroma MD [Primary Care Provider] - Discharge Diet: Advance as tolerated and Usual diet Discharge Activity: Resume usual activity Patient Instructions: Vertigo (ED) Print Language: Mauritian Coding Level of Care Code ED Drum Attendant for Gino Simmons
[2024-06-07 20:00] VITALS: BP 131/79; PULSE 64; RESP 16; O2SAT 96
[2024-06-07] MEDS: ketorolac 30 mg/mL INJ 15 MG IVP (20:06)
[2024-06-07] MEDS: LORazepam 2 mg/mL INJ 1 mL 0.5 MG IVP ×2 (20:07→21:02)
[2024-06-07] MEDS: SUMAtriptan 6 mg/0.5 mL SDV SUBCUT (20:47)
--- NOTE | 2024-06-07 20:49 | PC.NURSE ---
Patient reports no improvement of symtoms ( headache and dizziness). Provider notified and verbal order for Imitrex sq given. rbvo and placed for imitrex 6mg sq.
[2024-06-07 21:11] VITALS: BP 119/75; PULSE 62; O2SAT 98
== END 2024-06-07 21:13 | disposition home or self-care (01) ==
PROVIDERS: Emergency Provider Emergency Medicine; PCP Family Medicine
DX: R42 Dizziness and giddiness (principal)
CPT/HCPCS: 36415; 70496; 70498; 80053; 85025; 85610; 85730; 96372; 96374; 96375; 96376; 99285; J1885; J2060; J3030; J8597

== ENCOUNTER 2024-07-20 09:36 | Outpatient (CLI) | payer MEDICAID, SELFPAY ==
[2024-07-20 10:12] LABS: Urine Creatinine 148 mg/dL (39-259)
[2024-07-20 11:14] LABS: Total Volume Urine 1200 ml
== END 2024-07-20 09:37 | disposition home or self-care (01) ==
LOC: LAB 09:38
PROVIDERS: PCP Family Medicine; Visit Provider Internal Medicine
DX: R79.89 Other specified abnormal findings of blood chemistry (principal)
CPT/HCPCS: 82530; 82570